=== PATIENT | male | born 1950 | race Caucasian/White ===

== ENCOUNTER 2018-10-19 11:43 | Outpatient (CLI) | payer MEDICARE, BC | END 2018-10-19 19:40 | disposition home or self-care (01) | LOC: D.CATH 11:43 | DX: I25.119 Atherosclerotic heart disease of native coronary artery with unspecified angina pectoris (principal); E11.9 Type 2 diabetes mellitus without complications; I10 Essential (primary) hypertension ==

== ENCOUNTER 2018-11-03 10:19 | Outpatient (CLI) | payer MEDICARE, BC ==
[~2018-11-03] VITALS: Ht 185.4 cm; Wt 168.6 kg
--- NOTE | ~2018-11-03 | HEMODYNAMI ---
PATIENT:MEG DURAN MEDICAL RECORD: [id number] : 54 LOCATION:[facility] ADMISSION DATE: 11/03/18 Generatedon:11/03/201813:45 Patient name: MEG DURAN Patient #: [id number] SSN: D OB: 1950 Date of study: 11/03/2018 Page: Of Hemodynamic Procedure Report Patient Data Patient Demographics Procedure consent was obtained First Name: MEG Gender: Male Last Name: ROGER : 1950 [facility] Initial: ARLENE Age: 68 year(s) Patient #: [id number] Race: Additional ID: [id number] Contact details [address]: [address] [place] [address] State: [place] City: [place] Zip code: [address] Past Medical History Allergies Allergen Reaction Date Comments Reported Other allergy 10/19/2018 ALBUTEROL Other allergy 11/03/2018 ALBUTEROL Admission Admission Data Admission Date: 11/03/2018 Admission Time: 10:19 Lab Results Lab Result Date: 11/03/2018 Lab Result Time: 0:00 Biochemistry Name Units Result Min Max BUN mg/dl 34 --(----)-* 7 18 Creatinine mg/dl 1.1 --(--*-)-- 0.6 1.3 CBC Name Units Result Min Max Hematocrit % 39.4 -*(----)-- 42 54 Hemoglobin g/dl 13.6 --(*---)-- 13.5 17.5 Procedure Procedure Types Cath Procedure PCI Procedure Coronary Stent Coronary Stent Initial Procedure Description Procedure Date Procedure Date: 11/03/2018 Procedure Start Time: 13:27 Procedure End Time: 13:43 Procedure Staff Name Function William Plasencia MD Performing Physician Bolivar Nelson RN Nurse Sissy Dinero RT Scrub Jose Angel Wan RT Monitor Procedure Data Cath Procedure Fluoroscopy Diagnostic fluoroscopy Total fluoroscopy Time: 1.8 time: 1.8 min min Diagnostic fluoroscopy Total fluoroscopy dose: 556 dose: 556 mGy mGy Contrast Material Contrast Material Type Amount (ml) Isovue 300 48 Entry Location Entry Primary Successful Side Size Upsize Upsize Entry Closure Rios ccessful Closure Location (Fr) 1 (Fr) 2 (Fr) Remarks Device Remarks Radial Right 6 Fr Mechanical artery Short Compression Estimated blood loss: 10 ml Procedure Medications Medication Administration Route Dosage Oxygen 8 l/min Lidocaine 2% added to field 20 Heparin Flush Bag added to field 2 bags (1000units/500ml NS) 0.9% NaCl I.V. 100 ml/hr Radial Cocktail I.A. 1 syringe (Verapamil 2mg/Nitro 400mcg/Heparin 1500units) Versed I.V. 2 mg Fentanyl I.V. 100 mcg Heparin Bolus I.V. 5000 units Versed I.V. 2 mg Fentanyl I.V. 100 mcg Hemodynamics Rest HGB: 13.6 (g/dl) Heart Rate: 54 (bpm) Snapshots Pre Cath Intra NCS Post Cath Vital Signs Time Heart Resp SPO2 etCO2 NIBP (mmHg) Rhythm Pain Sedation Rate (ipm) (%) (mmHg) Status Level (bpm) 13:23:21 57 17 100 0 140/72(111) NSR 0 (11) 10(A) , No pain 13:28:45 65 16 97 0 125/74(114) NSR 0 (11) 10(A) , No pain 13:33:11 73 17 96 0 116/62(106) NSR 0 (11) 9(A) , No pain 13:37:33 75 17 96 0 127/68(98) NSR 0 (11) 9(A) , No pain 13:41:55 70 16 95 0 128/71(97) NSR 0 (11) 10(A) , No pain Medications Time Medication Route Dose Verified Delivered Reason Note s Effectiveness by by 13:22:25 Oxygen simple 8 l/min William Lutz Per physician mask St Noam Nelson RN, MD 13:22:31 Lidocaine 2% added 20ml William Thomas for local to vial [facility] anesthetic field MD HARTMANN 13:22:37 Heparin Flush added 2 bags William Thomas used for Bag to [facility] procedure (1000units/500ml field MD HARTMANN NS) 13:22:45 0.9% NaCl I.V. 100 William Lutz Per physician ml/hr St Noam Nelson RN, MD 13:27:48 Versed I.V. 2 mg William Lutz for sedation St Noam Nelson RN, MD 13:27:53 Fentanyl I.V. 100 mcg William Lutz for sedation St Noam Nelson RN, MD 13:28:34 Radial Cocktail I.A. 1 William Thomas for (Verapamil syringe St Noam Plasencia vasodilation 2mg/Nitro MD HARTMANN 400mcg/Heparin 1500units) 13:30:19 Heparin Bolus I.V. 5000 William Lutz for veri fied units St Noam Nelson RN anticoagulation with dr MD davies 13:34:07 Versed I.V. 2 mg William Lutz for sedation St Noam Nelson RN, MD 13:34:11 Fentanyl I.V. 100 mcg William Lutz for sedation St Noam Nelson RN, MD Procedure Log Time Note 12:56:22 Informed consent obtained and on chart 12:56:31 Diagnostic Cath Status : Elective 13:00:58 Bolivar Nelson RN sent for patient. Start room use. 13:01:02 Time tracking: Regular hours (M-F 7:00 - 5:00) 13:01:08 Plan of Care:Hemodynamics will remain stable., Cardiac rhythm will remain stable., Comfort level will be maintained., Respiratory function will remain adequate., Patient/ family verbilizes understanding of procedure., Procedure tolerated without complication., Recovers from procedure without complications.. 13:03:22 Patient allergic to Other allergyALBUTEROL 13:06:14 Lab Result : BUN 34 mg/dl 13:06:14 Lab Result : Hemoglobin 13.6 g/dl 13:06:14 Lab Result : Creatinine 1.1 mg/dl 13:06:14 Lab Result : Hematocrit 39.4 % 13:06:41 Patient received from Pre/Post Procedure Room to [facility] 1 Alert and oriented. Tansferred to table in Supine position. 13:06:42 Warm blankets applied, and josh hugger turned on for patient comfort. 13:06:43 Correct patient and procedure confirmed by team. 13:06:43 ECG and BP/O2 sat monitors applied to patient. 13:21:50 Vital chart was started 13:22:25 Oxygen 8 l/min simple mask was administered by Bolivar Nelson RN; Per physician; 13:22:31 Lidocaine 2% 20ml vial added to field was administered by William Plasencia MD; for local anesthetic; 13:22:37 Heparin Flush Bag (1000units/500ml NS) 2 bags added to field was administered by William Plasencia MD; used for procedure; 13:22:45 0.9% NaCl 100 ml/hr I.V. was administered by Bolivar Nelson RN; Per physician; 13:23:33 Baseline sample Acquired. 13:24:13 Full Disclosure recording started 13:24:26 H&P Date Dictated: 11/03/2018 Within 30 days and on chart., New H&P dictated by physician.. 13:24:28 Pre-procedure instructions explained to patient. 13:24:30 Pre-op teaching completed and patient verbalized understanding. 13:24:34 Family in waiting room. 13:24:38 Patient NPO since Breakfast. 13:24:57 Is the patient allergic to Iodine/contrast media? No. 13:25:12 Is patient on blood thinner?Yes 13:25:16 ACC The patient was administered the following blood thiners within the last 24 hours: ACCPlavix 13:25:18 Patient diabetic? Yes. 13:25:20 If diabetic: On Metformin? No 13:25:23 ----Pre-sedation anethsthesia assessment.---- 13:25:26 Previous problem with sedation/anesthesia? No ? 13:25:29 Snore? Yes 13:25:30 Sleep apnea? Yes 13:25:32 Deviated septum? No 13:25:33 Opens mouth fully? Yes 13:25:34 Sticks out tongue? Yes 13:25:40 Airway obstruction? No ? 13:25:53 Patient pain scale 0/10 ?. 13:26:09 IV patent on arrival in left wrist with 0.9% NaCl at [facility]. 13:26:17 Right Radial & Right Groin area was prepped with chlora-prep and draped in sterile fashion 13:26:19 Alarms reviewed by R. N. 13:26:20 Sharps counted by scrub and verified by R.N. 13:26:34 Physician arrived 13::34 --------ALL STOP TIME OUT------ 13:26:35 Final Timeout: patient, procedure, and site verified with staff and physician. All members of the team are in agreement. 13:26:38 Right Radial & Right Groin site verified by team. 13:26:56 Maximum allowable Isovue 300 dose 300ml. Physician notified. (300ml for normal creatinines. For patients with creatinine of 1.7 or higher multiply weight(kg) x 5 divided by creatinine.) 13:27:02 Fire Safety Assessment: A--An alcohol-based skin anteseptic being used preoperatively., C--Open oxygen or nitrous oxide is being used., D--An ESU, laser, or fiber-optic light is being used. 13:27:08 Physical assessment completed. ASA score P 2 - A patient with mild systemic disease as per William Plasencia MD. 13:27:13 Sedation plan: IV Moderate Sedation Medication:Versed, Fentanyl 13:27:30 Use device set Radial Dx or PCI 13:27:31 ACIST Syringe (78687) opened to sterile field. 13:27:32 Medline Cath Pack ([id number]) opened to sterile field. 13:27:32 Bag Decanter (2002S) opened to sterile field. 13:27:35 DIAGNOSTIC WIRE .035 260cm J wire (257475) opened to sterile field. 13:27:36 ACIST Hand Control (87549) opened to sterile field. 13:27:36 ACIST Manifold (83224) opened to sterile field. 13:27:37 Tegaderm 4 x 4 (1626W) opened to sterile field. 13:27:38 MBrace Wrist Support ([id number]) opened to sterile field. 13:27:40 SHEATH 6FR Slender (23-1060) opened to sterile field. 13:27:47 Procedure started. 13:27:48 Versed 2 mg I.V. was administered by Bolivar Nelson RN; for sedation; 13:27:52 Local anesthetic to right radial artery with Lidocaine 2% by William Plasencia MD.INITIAL ACCESS ONLY 13:27:53 Fentanyl 100 mcg I.V. was administered by Bolivar Nelson RN; for sedation; 13:28:07 WHISPER 300cm guide wire ([id number]) opened to sterile field. 13:28:08 INFLATOR Merit BasixCompak (CS6960) opened to sterile field. 13:28:26 A 6 Fr Short sheath was inserted into the Right Radial artery 13:28:34 Radial Cocktail (Verapamil 2mg/Nitro 400mcg/Heparin 1500units) 1 syringe I.A. was administered by William Plasencia MD; for vasodilation; 13::35 Baseline sample Acquired. ::38 Rhythm: sinus rhythm 13:29:16 6 Fr XBLAD 4 guide catheter was inserted over the wire 13:30:19 Heparin Bolus 5000 units I.V. was administered by Bolivar Nelson RN; for anticoagulation; verified with dr davies 13:33:31 WHISPER wire advanced. 13:33:33 Wire advanced across lesion. 13:34:07 Versed 2 mg I.V. was administered by Bolivar Nelson RN; for sedation; 13:34:11 Fentanyl 100 mcg I.V. was administered by Bolivar Nelson RN; for sedation; 13:35:18 Place stent Inflation Number: 1 A COBRA RX 3.0 X 18 Stent was prepped and advanced across the 1st Ob Claudine 80. The stent was deployed at 14 KRYSTAL for 0:30 (min:sec) 0. 13:35:53 Stent catheter was removed intact over wire. 13:35:55 Wire removed. 13:35:56 Guide catheter removed. 13:37:25 TR BAND Large ([id number]) opened to sterile field. 13:37:38 Sheath removed intact; hemostasis achieved with Mechanical Compression to the Right Radial artery. 13:37:41 Procedure ended.(Physican Out) 13:39:15 Fluoroscopy time 01.80 minutes. 13:39:23 Flurop Dose total: 556 13:39:23 Fluoroscopy dose: 556 mGy 13:39:32 Contrast amount:Isovue 300 48ml. 13:39:35 Sharps counted by scrub and verified by R.N. 13:40:54 TR band inflated with 10cc of air. 13:40:56 Insertion/operative site no bleeding no hematoma. 13:41:05 Post right radial artery:stable 13:41:14 Post-procedure physical assessment completed. ASA score P 2 - A patient with mild systemic disease as per William Plasencia MD. 13:41:39 Procedure type changed to Cath procedure, PCI procedure, Coronary Stent, Coronary Stent Initial 13:42:59 Post procedure rhythm: sinus rhythm 13:43:04 Patient needs reinforcement of post procedure teaching. 13:43:07 Estimated blood loss: 10 ml 13:43:10 Procedure and supply charges have been captured, reviewed, submitted and are correct. 13:43:12 Vital chart was stopped 13:43:13 See physician's report for complete and final results. 13:43:15 Report given to Pre/Post Procedure Room. 13:43:20 Patient transfered to Pre/Post Procedure Room with Stretcher. 13:43:23 Procedure ended. 13:43:23 Full Disclosure recording stopped 13:43:28 End room use (Document Last) Intervention Summary Intervention Notes Time ActionType Lesion and Equipment Action# Pressure Duration Attributes Used 13:35:18 Place stent 1st Ob Claudine COBRA RX 1 14 00:30 3.0 X 18 Stent Device Usage Item Name Manufacture Quantity Catalog Hospital Part Current Minimal Lot# / Number Charge Number Stock Stock Serial# Code ACIST Syringe Acist 1 36345 228297 521745 [id number] 20 (63802) Medical Systems Inc Medline Cath Medline 1 [id number] 289880 11264 541797 5 Pack ([id number]) Bag Decanter Microtek 1 2001S 665100 33159 271417 5 (2001S) Medical Inc. DIAGNOSTIC St Alex 1 494721 657959 561804 229647 30 WIRE .035 260cm J wire (608710) ACIST Hand Acist 1 98029 085361 081445 359962 5 Control Medical (35419) Systems Inc ACIST Manifold Acist 1 45002 664901 806157 458300 5 (78989) Medical Systems Inc Tegaderm 4 x 4 3M 1 1626W 877390 886188 454676 5 (1626W) MBrace Wrist Advanced 1 140-0250-00 144735 62141 410544 5 Support Vascular (649496549) Dynamics SHEATH 6FR Terumo 1 [id number] 961569 456966 942747 5 Slender (80-1060) WHISPER 300cm Bryant 1 [id number] 045106 657064 399167 5 guide wire Vascular (4180304HL) INFLATOR Merit Merit 1 QI2763 319108 024350 681947 15 [facility] ([id number]) COBRA RX 3.0 X Celonova 1 [id number] 034949 [id number] [id number] 1 [id number] 18 stent Biosciences ([id number]) TR BAND Large Terumo 1 [id number] 547673 939484 843285 40 ([id number]) Signature Audit [place] Stage Time Signature Unsigned Intra-Procedure 11/03/2018 Jose Angel Wan 1:45:32 PM RT(R) (CV) Signatures Monitor : Jose Angel Wan RT Signature : Date : Time : [address] [place] [address]
[~2018-11-03 10:19] MED LIST: AMBIEN10 MG PO; BAYER CHEWABLE81 MG PO; CARDIZEM CD120 MG PO; HUMALOG 30100 UNITS/ SC; HYDROCODONE-APA1 TAB PO; ISOSORBIDE MONO20 MG PO; LASIX40 MG; LOPRESSOR25 MG PO; NEURONTIN 400400 MG PO; NITROSTAT0.4 MG SL; NORVASC5 MG PO; NOVOLIN 70/30 110 ML SC; OXYCONTIN10 MG PO; PLAVIX75 MG PO; PRILOSEC20 MG PO; SYNTHROID300 MCG PO; ULTRAM50 MG PO; XANAX1 MG; ZESTRIL40 MG PO
[2018-11-03 10:48] VITALS: BP 126/49; Ht 185.4 cm; Wt 168.6 kg
[2018-11-03 10:58] LABS: BASOPHILS 0.4 % (0-2); EOSINOPHILS 6.9 % (0-7); HEMATOCRIT 39.4 % (42.0-54.0); HEMOGLOBIN 13.6 g/dL (13.5-17.5); IMMATURE GRANULOCYTES 0.2 % (0-5); LYMPHOCYTES 38.9 % (15-50); MCH 30.9 pg (26.0-34.0); MCHC 34.5 g/dL (31.0-37.0); MCV 89.5 fL (80.0-100.0); MEAN PLATELET VOLUME 11.1 fL (7.4-10.4); MONOCYTES 9.3 % (2-11); NEUTROPHILS 44.3 % (40-80); PLATELET COUNT 119 10x3/uL (130-400); RDW 13.4 % (11.5-14.5); WBC 4.5 10x3/uL (4.8-10.8)
[2018-11-03 11:05] LABS: ANION GAP 12.5 mmol/L (8-16); CALCIUM 9.1 mg/dL (8.5-10.1); CREATININE - SERUM 1.1 mg/dL (0.6-1.3); POTASSIUM - SERUM 4.5 mmol/L (3.5-5.1)
--- NOTE | 2018-11-03 13:55 | NUR ---
PT ARRIVED BY STRETCHER. PLACED ON MONITORS. ASSESSMENT COMPLETED. HEAD OF BED INC TO 30 DEGREES. FAMILY AT BEDSIDE
--- NOTE | 2018-11-03 14:10 | NUR ---
PT GIVEN WATER AND SANDWICH TRAY. DENIES NAUSEA/PAIN. RIGHT WRIST TR BAND IN PLACE. NO BLEEDING/HEMATOMA NOTED.
--- NOTE | 2018-11-03 14:40 | NUR ---
PT SITTING UP AND VISITING WITH FAMILY. VSS. RIGHT RADIAL TR BAND IN PLACE. NO BLEEDING/HEMATOMA NOTED.
--- NOTE | 2018-11-03 15:10 | NUR ---
RIGHT RADIAL TR BAND IN PLACE. NO BLEEDING/HEMATOMA NOTED. VSS. PT RESTING COMFORTABLY. FAMILY AT BEDSIDE. CALL LIGHT WITHIN REACH.
--- NOTE | 2018-11-03 16:03 | NUR ---
PT SITTING UP AND VISITING WITH FAMILY. VSS. 3cc OF AIR REMOVED FROM RIGHT WRIST TR BAND. PT TOLERATED WELL. NO BLEEDING/HEMATOMA NOTED. WILL CONTINUE TO MONITOR.
--- NOTE | 2018-11-03 16:20 | NUR ---
3cc OF AIR REMOVED FROM TR BAND. NO BLEEDING/HEMATOMA NOTED. VSS.
--- NOTE | 2018-11-03 16:37 | NUR ---
3cc OF AIR REMOVED FROM TR BAND. PT TOLERATED WELL. VSS. NO BLEEDING/HEMATOMA NOTED.
--- NOTE | 2018-11-03 17:07 | NUR ---
LEFT HAND PIV D/C'D WITH CATH TIP INTACT. TOLERATED WELL. 3cc REMOVED FROM TR BAND. NO BLEEDING/HEMATOMA NOTED. PT INSTRUCTED TO GET UP AND DRESSED. PT'S SON AT BEDSIDE TO ASSIST.
--- NOTE | 2018-11-03 17:10 | NUR ---
PT AMBULATED TO RESTROOM. VOIDED WITHOUT DIFFICULTY. BACK TO ROOM. TR BAND REMOVED. DRESSING APPLIED. NO BLEEDING/HEMATOMA NOTED.
--- NOTE | 2018-11-03 17:15 | NUR ---
DISCUSSED DISCHARGE INSTRUCTIONS WITH PT. HE VOICED UNDERSTANDING. RIGHT WRIST DRESSING C/D/I. NO S/S OF HEMATOMA NOTED.
--- NOTE | 2018-11-03 17:30 | NUR ---
PT OUT TO VEHICLE. AMBULATED TO CAR. HE REFUSED WHEELCHAIR. STEADY GAIT NOTED. ALL BELONGINGS AND PAPERWORK IN HAND.
--- NOTE | 2018-11-07 15:03 | HP ---
PATIENT: MEG DURAN MEDICAL RECORD: [id number] ACCOUNT: [id number] LOCATION:GARY : 54 ADMISSION DATE: 11/03/18 PCP: JEFF MENDIOLA HISTORY AND PHYSICAL EXAMINATION HISTORY OF PRESENT ILLNESS: A 68-year-old gentleman with known history of coronary artery disease as well as cardiomyopathy who recently underwent stenting to the LAD and is brought back for staged intervention to circumflex who has been having continued angina despite ISAK inhibitor, calcium channel tiara, Plavix and aspirin. PAST MEDICAL HISTORY: Includes; 1. History of diabetes mellitus. 2. Coronary artery disease as described above. 3. Cardiomyopathy. PHYSICAL EXAMINATION: GENERAL: Obese gentleman in no acute distress. VITAL SIGNS: Blood pressure 126/49, pulse 57 and regular. HEENT: Normocephalic and atraumatic. NECK: No JVD or bruit. HEART: Regular. LUNGS: Hernandez clear. ABDOMEN: Soft, nontender. EXTREMITIES: Pulse 2+. No edema. NEUROLOGIC: Grossly intact. IMPRESSION: Continued angina. PLAN: Intervention of circumflex. TRANSINT:[id number] Voice Confirmation ID: [id number] DOCUMENT ID: [id number] EVE CUELLAR MD at 1503 CC: [id number] DICTATION DATE: 11/03/18 1300 FITTER TYPE BAR AND SEGMENT: 11/03/18 1321 DEP CLI 11/03/18 [facility] [address] [place] [address]
--- NOTE | 2018-11-07 15:03 | OP ---
PATIENT NAME: MEG DURAN MEDICAL RECORD: [id number] :54 LOCATION:D.CAT ADMISSION DATE: SURGEON: EVE CUELLAR MD DATE OF OPERATION: 11/03/2018 PROCEDURE: COMMUNICATIONS EDITOR and stent to circumflex OM1. DESCRIPTION OF PROCEDURE: After radial sheath was placed, XB LAD guiding catheter provided excellent guide catheter support followed by 300 cm Whisper wire placed across the 80% to 90% stenosed circumflex down this portion of vessel. Stent deployed was 3.0 x 18 mm Cobra stent up to 14 atmospheres for 45 seconds. Final angiography shows excellent resolution of 80% to 90% stenosis with no significant residual. CASEY flow was 3 throughout the procedure. The patient was previously on Plavix. Heparin was used during the case. Sheath was closed with TR band. TRANSINT:[id number] Voice Confirmation ID: [id number] DOCUMENT ID: [id number] EVE CUELLAR MD at 1503 CC: [id number] DICTATION DATE: 11/03/18 1351 PAPER HANGER: 11/03/18 2018 DEP CLI 11/03/18 [place] [id number] [place] [address]
== END 2018-11-03 17:30 | disposition home or self-care (01) ==
LOC: D.CATH 10:19
PROVIDERS: ATTEND Internal Medicine Interventional Cardiology
DX: I25.110 Atherosclerotic heart disease of native coronary artery with unstable angina pectoris (principal)